=== PATIENT | male | born 1935 | race Caucasian/White ===

== ENCOUNTER 2020-08-15 21:27 | Observation (INO) ==
[2020-08-15 21:51] LABS: Immature Granulocytes % 0.3 % (0-4); Red Cell Distribution Width 13.5 % (11.5-14.5)
[2020-08-15 21:52] LABS: Basophils # 0.1 K/mcL (0.0-0.2); Basophils % 0.9 %; Eosinophils # 0.2 K/mcL (0.0-0.6); Eosinophils % 2.3 %; Hematocrit 52.2 % (37.5-50.1); Hemoglobin 17.2 g/dL (12.9-16.9); Immature Platelets 3.2 % (1.1-6.1); Lymphocytes # 1.2 K/mcL (0.6-4.6); Lymphocytes % 17.5 %; Mean Corpuscular Hemoglobin 31.2 pg (28.0-33.3); Mean Corpuscular Volume 94.7 fL (83.0-100.0); Mean Platelet Volume 9.9 fL (9.4-12.4); Monocytes # 0.7 K/mcL (0.0-1.3); Monocytes % 9.4 %; Neutrophils # 4.9 K/mcL (1.6-8.9); Platelet Count 123 K/mcL (140-400); Red Blood Count 5.51 M/mcL (4.19-5.50); Segmented Neutrophils % 69.6 %
[2020-08-15 22:15] LABS: Calcium 8.6 mg/dL (8.6-10.3)
[2020-08-15 22:16] LABS: Troponin I 0.03 ng/mL (< 0.04)
[2020-08-15] MEDS ORDERED: Isovue-370 500 ML BOTTLE IVP ONE (22:27)
[2020-08-15 23:55] LABS: Bilirubin,Urine Negative (Negative); Blood,Urine Trace (Negative); Clarity,Urine Clear (Clear); Color,Urine Light-Yellow (Yellow); Glucose,Urine (UA) >=1000 mg/dL (Normal); Hyaline Casts,Urine Few per lpf (None Seen); Ketones,Urine Trace mg/dL (Negative); Leukocyte Esterase,Urine Negative (Negative); Nitrite,Urine Negative (Negative); Protein,Urine 30 mg/dL (Neg-Trace); RBC,Urine 0-3 per hpf (0-3); Specific Gravity,Urine > 1.030 (1.010-1.025); Squamous Epithelial Cell,Urine Few per hpf (None-Few); Urobilinogen,Urine Normal (Normal); WBC,Urine 0-3 per hpf (0-3)
[2020-08-16] MEDS ORDERED: Acetaminophen 325 MG TABLET PO PRN (01:52)
[2020-08-16] MEDS ORDERED: Naloxone 0.4 MG/ML INJ IVP PRN (01:52)
[2020-08-16] MEDS ORDERED: Ondansetron 4 MG/2 ML VIAL IVP PRN (01:52)
[2020-08-16] MEDS ORDERED: Dextrose Gel 15 GM/37.5 ML TUBE PO PRN ×2 (06:56)
[2020-08-16] MEDS ORDERED: *HR* Dextrose 50 % in Water (Vial) 50 ML VIAL IVP PRN (06:56)
[2020-08-16] MEDS ORDERED: D5% in Water 1,000 ML IVC PRN (06:56)
[2020-08-16] MEDS ORDERED: Furosemide 20 MG/2 ML VIAL IVP ONE (07:56)
[2020-08-16] MEDS ORDERED: amLODIPine 5 MG TABLET PO SCH (09:00)
[2020-08-16 09:52] LABS: Eosinophils % 0.5 %; Hemoglobin 17.9 g/dL (12.9-16.9)
[2020-08-16 09:54] LABS: Basophils % 0.5 %; Hematocrit 54.4 % (37.5-50.1); Immature Granulocytes % 0.3 % (0-4); Immature Platelets 3.9 % (1.1-6.1); Lymphocytes # 1.2 K/mcL (0.6-4.6); Lymphocytes % 19.1 %; Mean Corpuscular HGB Conc 32.9 g/dL (31.6-35.5); Mean Corpuscular Hemoglobin 31.1 pg (28.0-33.3); Mean Corpuscular Volume 94.6 fL (83.0-100.0); Monocytes # 0.6 K/mcL (0.0-1.3); Monocytes % 9.3 %; Neutrophils # 4.2 K/mcL (1.6-8.9); Platelet Count 111 K/mcL (140-400); Red Blood Count 5.75 M/mcL (4.19-5.50); Red Cell Distribution Width 13.7 % (11.5-14.5); Segmented Neutrophils % 70.3 %
[2020-08-16 10:02] LABS: Fibrinogen 341 mg/dL (169-393)
[2020-08-16 10:04] LABS: D-Dimer 1099 ng/mLFEU (0-500)
[2020-08-16 10:25] LABS: Alanine Aminotransferase 9 Units/L (7-52); Albumin/Globulin Ratio 1.3 (1.1-2.2); Alkaline Phosphatase 57 Units/L (34-104); Aspartate Amino Transferase 17 Units/L (13-39); BUN/Creatinine Ratio 17 (6-26); Bilirubin,Total 1.2 mg/dL (0.3-1.0); Blood Urea Nitrogen 20 mg/dL (8-23); Calcium 8.9 mg/dL (8.6-10.3); Carbon Dioxide 24 mEq/L (23-29); Chloride 102 mEq/L (98-107); Globulin 3.1 g/dL (2.4-3.5); Glucose 262 mg/dL (70-105); Osmolality,Calculated 296 (280-300); Potassium 4.2 mEq/L (3.5-5.1); Sodium 137 mEq/L (136-145); Total Protein 7.1 g/dL (6.4-8.9); Troponin I 0.08 ng/mL (< 0.04); eGFR For African Americans > 60 (> 60); eGFR For Non-African Americans 59 (> 60)
[2020-08-16] MEDS ORDERED: Insulin LISPRO 300 UNITS/3 ML VIAL SQ SCH (12:00)
[2020-08-16 13:38] VITALS: BP 140/78
[2020-08-16] MEDS ORDERED: *HR* Heparin 5,000 UNIT/ML VIAL SQ SCH (18:00)
== END 2020-08-16 16:25 | disposition home or self-care (01) ==
LOC: EMEROOARM 21:27 → 2NENU 21:27 → SUATTDRO 08-16 00:18 → 2NENU 08-16 01:30
PROVIDERS: ADMIT Internal Medicine; ATTEND Internal Medicine

== ENCOUNTER 2021-12-01 23:51 | Inpatient (IN) ==
[2021-12-01] MEDS ORDERED: Ipratropium/Albuterol Neb 3 ML ONE (23:57)
[2021-12-02 00:03] LABS: ABG Base Excess -8 mEq/L (-2 to 3); ABG HCO3 20 mEq/L (21-27); ABG Oxygen Saturation 100 % (95-98); ABG PCO2 49 mmHg (35-45); ABG PH 7.23 pH Units (7.32-7.45); ABG PO2 237 mmHg (85-104); ABG TCO2 22 mEq/L (20-26); Blood Gas Pressure Support 13 cm H2O
[2021-12-02] MEDS ORDERED: Furosemide 40 MG/4 ML VIAL IVP ONE (00:07)
[2021-12-02] MEDS ORDERED: Ipratropium/Albuterol Neb 3 ML IH ONE (00:17)
[2021-12-02 00:20] LABS: Basophils # 0.1 K/mcL (0.0-0.2); Basophils % 0.9 %; Eosinophils # 0.4 K/mcL (0.0-0.6); Hematocrit 59.7 % (37.5-50.1); Hemoglobin 19.5 g/dL (12.9-16.9); Immature Granulocytes % 0.8 % (0-4); Lymphocytes # 4.5 K/mcL (0.6-4.6); Mean Corpuscular HGB Conc 32.7 g/dL (31.6-35.5); Mean Corpuscular Hemoglobin 33.3 pg (28.0-33.3); Mean Corpuscular Volume 102.1 fL (83.0-100.0); Mean Platelet Volume 12.8 fL (9.4-12.4); Monocytes # 0.7 K/mcL (0.0-1.3); Monocytes % 5.8 %; Neutrophils # 5.9 K/mcL (1.6-8.9); Nucleated Red Blood Cells 0.3 /100 WBC (0); Platelet Count 211 K/mcL (140-400); Red Blood Count 5.85 M/mcL (4.19-5.50); Red Cell Distribution Width 13.5 % (11.5-14.5); Segmented Neutrophils % 50.5 %; White Blood Count 11.6 K/mcL (4.3-11.1)
[2021-12-02 00:27] LABS: INR 1.1; Prothrombin Time 11.9 Seconds (9.4-12.1)
[2021-12-02] MEDS ORDERED: Isovue-370 500 ML BOTTLE IVP ONE (00:33)
[2021-12-02] MEDS: Nitroglycerin 0.2 MG PATCH.TD24 TD ONE ×2 (00:40→01:42)
[2021-12-02 01:04] LABS: Bilirubin,Urine Negative (Negative); Blood,Urine Moderate (Negative); Clarity,Urine Clear (Clear); Color,Urine Light-Yellow (Yellow); Glucose,Urine (UA) 300 mg/dL (Normal); Hyaline Casts,Urine Few per lpf (None Seen); Ketones,Urine Negative (Negative); Leukocyte Esterase,Urine Negative (Negative); Mucus,Urine Few per lpf (None-Few); Nitrite,Urine Negative (Negative); Protein,Urine 30 mg/dL (Neg-Trace); Specific Gravity,Urine 1.013 (1.010-1.025); Squamous Epithelial Cell,Urine Few per hpf (None-Few); Urobilinogen,Urine Normal (Normal); WBC,Urine 0-3 per hpf (0-3)
[2021-12-02 01:36] LABS: Albumin 3.7 g/dL (3.5-5.7); Albumin/Globulin Ratio 1.1 (1.1-2.2); Bilirubin,Direct 0.1 mg/dL (0.0-0.2); Bilirubin,Indirect 0.6 mg/dL (0.0-1.0); Bilirubin,Total 0.7 mg/dL (0.3-1.0); Calcium 9.1 mg/dL (8.6-10.3); Globulin 3.4 g/dL (2.4-3.5); Magnesium 2.2 mg/dL (1.6-2.6); Total Protein 7.1 g/dL (6.4-8.9); Troponin I 0.11 ng/mL (< 0.04)
[2021-12-02 02:04] LABS: Adenovirus Not Detected (Not Detect); Bordetella Pertussis Not Detected (Not Detect); Chlamydophila pneumoniae Not Detected (Not Detect); Coronavirus 229E Not Detected (Not Detect); Coronavirus HKU1 Not Detected (Not Detect); Coronavirus NL63 Not Detected (Not Detect); Coronavirus OC43 Not Detected (Not Detect); Human Metapneumovirus Not Detected (Not Detect); Human Rhinovirus/Enterovirus Not Detected (Not Detect); Influenza A Subtype 2009 H1 Not Detected (Not Detect); Influenza B Not Detected (Not Detect); Mycoplasma pneumoniae Not Detected (Not Detect); Parainfluenza Virus 1 Not Detected (Not Detect); Parainfluenza Virus 2 Not Detected (Not Detect); Parainfluenza Virus 3 Not Detected (Not Detect); Parainfluenza Virus 4 Not Detected (Not Detect); Respiratory Syncytial Virus Not Detected (Not Detect); SARS-CoV-2 Not Detected (Not Detect)
[2021-12-02] MEDS ORDERED: Calcium Gluconate 1gm/50mL 1 GM/50 ML BAG IVPB ONE (03:32)
[2021-12-02] MEDS ORDERED: Insulin Human Regular 5 UNIT in 0.9 % Sodium Chloride 10 ML IV ONE ×2 (03:32→05:30)
[2021-12-02] MEDS ORDERED: *HR* Dextrose 50 % in Water (Vial) 50 ML VIAL IVP ONE (03:32)
[2021-12-02] MEDS ORDERED: SODIUM ZIRCONIUM CYCLOSILICATE 5 GM POWD.PACK PO SCH (03:45)
[2021-12-02] MEDS ORDERED: Naloxone 0.4 MG/ML INJ IVP PRN (04:24)
[2021-12-02] MEDS ORDERED: Acetaminophen 325 MG TABLET PO PRN (04:24)
[2021-12-02] MEDS ORDERED: Melatonin 3 MG TABLET PO PRN (04:24)
[2021-12-02] MEDS ORDERED: *HR* Heparin 5,000 UNIT/ML VIAL IVP PRN ×2 (04:27)
[2021-12-02] MEDS ORDERED: *HR* Heparin 5,000 UNIT/ML VIAL IVP ONE (04:27)
[2021-12-02] MEDS ORDERED: Dextrose 4 GM Chewable Tablets PO PRN ×2 (04:32)
[2021-12-02] MEDS ORDERED: D5% in Water 1,000 ML IVC PRN (04:32)
[2021-12-02] MEDS ORDERED: *HR* Dextrose 50 % in Water (Syg) 50 ML SYRINGE IVP PRN (04:32)
[2021-12-02] MEDS ORDERED: Perflutren Lipid Microsphere 1.3 ML in 0.9 % Sodium Chloride 8.7 ML IVP PRN (04:47)
[2021-12-02] MEDS: Heparin 25,000UNIT/250ML 1/2NS 25,000 UNIT/250 ML IV.SOLN IVC SCH (05:24)
[2021-12-02] MEDS ORDERED: *HR* Dextrose 50 % in Water (Syg) 50 ML SYRINGE IVP ONE (05:30)
[2021-12-02 05:44] LABS: Hematocrit 53.1 % (37.5-50.1); Mean Corpuscular HGB Conc 32.6 g/dL (31.6-35.5); Mean Corpuscular Hemoglobin 32.2 pg (28.0-33.3); Mean Corpuscular Volume 98.7 fL (83.0-100.0); Mean Platelet Volume 10.3 fL (9.4-12.4); Platelet Count 109 K/mcL (140-400); Red Blood Count 5.38 M/mcL (4.19-5.50); Red Cell Distribution Width 13.4 % (11.5-14.5)
[2021-12-02 05:45] LABS: Hemoglobin 17.3 g/dL (12.9-16.9)
[2021-12-02 05:52] LABS: Heparin anti-factor XA UFH < 0.04 IU/mL (0.30-0.70); INR 1.2; Prothrombin Time 13.3 Seconds (9.4-12.1)
[2021-12-02 06:03] LABS: Estimated Average Glucose 163 mg/dl; Hemoglobin A1C 7.3 %
[2021-12-02 06:03] LABS: Lactate Dehydrogenase 251 Units/L (140-271); Total Protein 7.1 g/dL (6.4-8.9)
[2021-12-02 06:05] LABS: Chol/HDL Ratio 3.2 (0-4.9); Phosphorous 4.7 mg/dL (2.7-4.5)
[2021-12-02 06:15] LABS: Calcium 9.4 mg/dL (8.6-10.3); Potassium 4.5 mEq/L (3.5-5.1)
[2021-12-02 06:18] LABS: Thyroid Stimulating Hormone 2.649 mcIU/mL (0.340-5.600)
[2021-12-02 06:31] LABS: ABG Base Excess 0 mEq/L (-2 to 3); ABG HCO3 25 mEq/L (21-27); ABG Oxygen Saturation 98 % (95-98); ABG PCO2 39 mmHg (35-45); ABG PH 7.41 pH Units (7.32-7.45); ABG PO2 99 mmHg (85-104); ABG TCO2 26 mEq/L (20-26)
[2021-12-02] MEDS: Budesonide/Formoterol 160/4.5 1 PUFF INH IH SCH ×2 (07:27→21:59)
[2021-12-02] MEDS: Ipratropium/Albuterol Neb 3 ML IH SCH ×5 (07:27→23:42)
[2021-12-02] MEDS ORDERED: carvediloL 6.25 MG TABLET PO SCH (08:00)
[2021-12-02] MEDS: Piperacillin/Tazobactam 3.375 GM in 0.9 % Sodium Chloride Mini Bag 100 ML IVPB SCH ×2 (08:20→15:40)
[2021-12-02] MEDS: Aspirin 81 MG TAB.CHEW PO SCH (08:22)
[2021-12-02] MEDS: Lactobacillus 1 EACH CAP.SPRINK PO SCH ×2 (08:22→21:53)
[2021-12-02] MEDS: Chlorhexidine Rinse 15 ML MOUTHWASH MM SCH ×2 (08:22→21:52)
[2021-12-02] MEDS: MethylPREDNISolone 40 MG/ML VIAL IVP SCH ×2 (08:22→15:40)
[2021-12-02] MEDS ORDERED: Furosemide 20 MG/2 ML VIAL IVP SCH (09:00)
[2021-12-02] MEDS: Insulin LISPRO 300 UNITS/3 ML VIAL SUBQ SCH ×2 (12:37→21:53)
[2021-12-02] MEDS: carvediloL 6.25 MG TABLET PO SCH (17:06)
[2021-12-03] MEDS: Piperacillin/Tazobactam 3.375 GM in 0.9 % Sodium Chloride Mini Bag 100 ML IVPB SCH ×2 (00:12→09:36)
[2021-12-03] MEDS: MethylPREDNISolone 40 MG/ML VIAL IVP SCH ×2 (00:12→09:35)
[2021-12-03] MEDS: Insulin LISPRO 300 UNITS/3 ML VIAL SUBQ SCH ×2 (00:16→05:42)
[2021-12-03 04:46] VITALS: TEMP 98.2
[2021-12-03] MEDS: Ipratropium/Albuterol Neb 3 ML IH SCH ×3 (05:11→11:26)
[2021-12-03] MEDS: Heparin 25,000UNIT/250ML 1/2NS 25,000 UNIT/250 ML IV.SOLN IVC SCH (05:43)
[2021-12-03] MEDS: Budesonide/Formoterol 160/4.5 1 PUFF INH IH SCH (07:19)
[2021-12-03] MEDS: Aspirin 81 MG TAB.CHEW PO SCH (09:32)
[2021-12-03] MEDS: Lactobacillus 1 EACH CAP.SPRINK PO SCH (09:32)
[2021-12-03] MEDS: carvediloL 6.25 MG TABLET PO SCH (09:32)
[2021-12-03] MEDS: Chlorhexidine Rinse 15 ML MOUTHWASH MM SCH (09:38)
[2021-12-03 09:53] VITALS: BP 116/67; PULSE 87; O2SAT 90
== END 2021-12-03 11:58 | disposition hospice, home (50) | DRG 280 ==
LOC: EMEROOARM 23:51 → 2ANU 23:51 → SUATTDRO 12-02 03:36 → OBSVTOIN 12-02 03:36 → 2NNU 12-02 04:02 → ICNU 12-02 04:06 → 2ANU 12-02 18:20
PROVIDERS: ADMIT Internal Medicine; ATTEND Internal Medicine